=== PATIENT | female | born 1980 | race Caucasian/White ===

== ENCOUNTER 2016-06-22 17:27 | Emergency (ER) | payer MEDICAID ==
[~2016-06-22] VITALS: Ht 177.8 cm; Wt 88.5 kg
[~2016-06-22 17:27] MED LIST: AMPH30TA3 PO
[2016-06-22] MEDS ORDERED: DEXT5SYR PO (17:43)
[2016-06-22] MEDS ORDERED: [UNRECOGNIZED DRUG - REMARK] PO (17:43)
== END 2016-06-22 17:54 | disposition home or self-care (01) ==
LOC: ER 17:31
DX: J32.9 Chronic sinusitis, unspecified (principal); Z88.0 Allergy status to penicillin
CPT/HCPCS: 99283; A4663

== ENCOUNTER 2016-07-10 21:10 | Emergency (ER) | payer MEDICAID ==
[~2016-07-10] VITALS: Ht 177.8 cm; Wt 88.5 kg
[~2016-07-10 21:10] MED LIST changes: -AMPH30TA3 PO; +DEXT5SYR PO; +[UNRECOGNIZED DRUG - REMARK] PO
--- NOTE | 2016-07-10 23:01 | NUR ---
Patient discharged to home in stable conditon. Written and verbal after care instructions given. Patient verbalizes understanding of instructions.
== END 2016-07-10 23:02 | disposition home or self-care (01) ==
LOC: ER 21:14
DX: J06.9 Acute upper respiratory infection, unspecified (principal); F17.200 Nicotine dependence, unspecified, uncomplicated; Z88.0 Allergy status to penicillin
CPT/HCPCS: 71020; 99284; A4663

== ENCOUNTER → 2016-09-03 | Emergency (ER) | payer MEDICAID ==
--- NOTE | 2016-09-03 23:02 | NUR ---
PATIENT WAS CALLED SEVERAL TIMES. PATIENT WAS NOT PRESENT. PATIENT WAS NOT TRAIGE OR SEEN BY ERMD
== END | disposition left against medical advice (07) ==
LOC: ER 22:38
DX: Z53.21 Procedure and treatment not carried out due to patient leaving prior to being seen by health care provider (principal)

== ENCOUNTER 2016-09-04 07:30 | Emergency (ER) | payer MEDICAID ==
[~2016-09-04] VITALS: Ht 172.7 cm; Wt 77.1 kg
--- NOTE | 2016-09-04 07:48 | NUR ---
DR MERCADO AT THE BEDSIDE FOR EVAL AND EXAM.
--- NOTE | 2016-09-04 08:05 | NUR ---
Patient discharged to home in stable conditon. Written and verbal after care instructions given. Patient verbalizes understanding of instructions.
[2016-09-04 08:06] VITALS: BP 114/64
== END 2016-09-04 08:07 | disposition home or self-care (01) ==
LOC: ER 07:30
DX: K04.7 Periapical abscess without sinus (principal); F17.200 Nicotine dependence, unspecified, uncomplicated; Z88.0 Allergy status to penicillin
CPT/HCPCS: A4663

== ENCOUNTER 2016-09-27 18:18 | Emergency (ER) | payer MEDICAID ==
[~2016-09-27] VITALS: Ht 172.7 cm; Wt 77.1 kg
--- NOTE | 2016-09-27 19:15 | NUR ---
Assumed care of pt at this time. Pt resting in position of comfort for self. Pt c/o heavy vaginal bleeding that started today, sts passing large clots. Also c/o lower abd pain. Pt resting in position of comfort for self. Awaiting further eval. Family at bedside.
[2016-09-27 20:06] LABS: *BILIRUBIN,URIN NEGATIVE (NEGATIVE); *BLOOD, URINE 3+ (NEGATIVE); *CLARITY,URINE CLOUDY (CLEAR); *KETONES,URINE NEGATIVE (NEGATIVE); *PROTEIN,URINE 1+ (NEGATIVE); *UROBILINOGEN,URINE 0.2 E.U./dl (NORMAL); LEUKOCYTE ESTERASE ,URINE NEGATIVE (NEGATIVE); NITRITE, URINE NEGATIVE (NEGATIVE); PH,URINE 6.5 (5.0-8.0); UGLUCOSE NEGATIVE (NEGATIVE)
[2016-09-27 20:09] LABS: *URINE HCG, QUAL NEGATIVE (NEGATIVE)
[2016-09-27 20:15] LABS: *COLOR,URINE Brown (YELLOW)
[2016-09-27 20:16] LABS: BACTERIA,URINE MODERATE /HPF (NONE SEEN); MUCUS,URINE MANY /LPF (0-FEW); RBC,URINE TNTC /HPF (0-3); SQUAMOUS EPITHELIAL CELL,UR MODERATE /HPF (NONE SEEN)
[2016-09-27 20:54] LABS: BASOPHILS # (AUTO) 0.1 K/uL (0.0-8.0); BASOPHILS % (AUTO) 0.7 % (0.0-2.0); EOSINOPHILS # (AUTO) 0.3 K/uL (0.0-0.7); EOSINOPHILS % (AUTO) 3.6 % (0.0-7.0); HEMATOCRIT 37.6 % (37-47); HEMOGLOBIN 12.9 G/DL (12.0-16.0); LYMPHOCYTES # (AUTO) 2.5 K/UL (0.8-4.8); LYMPHOCYTES % (AUTO) 34.9 % (20.5-51.5); MEAN CORPUSCULAR HEMOGLOBIN 30.7 UUG (27.0-31.0); MEAN CORPUSCULAR HGB CONC 34 g/dL (32.0-37.0); MEAN CORPUSCULAR VOLUME 89.8 FL (81.0-99.0); MONOCYTES # (AUTO) 0.8 K/UL (0.1-1.30); MONOCYTES % (AUTO) 10.7 % (0.0-11.0); NEUTROPHILS # (AUTO) 3.5 K/UL (1.8-8.9); NEUTROPHILS % (AUTO) 50.1 % (38.5-71.5); PLATELET COUNT (AUTO) 233 K/UL (150-450); RED BLOOD CELL COUNT(AUTO) 4.19 MIL/UL (4.2-5.4); WHITE BLOOD COUNT (AUTO) 7.2 K/UL (4.0-11.2)
[2016-09-27 21:00] LABS: CREATININE 0.9 mg/dL (0.6-1.3); POTASSIUM 3.8 mmol/L (3.5-5.1)
[2016-09-27 21:06] LABS: BILIRUBIN,TOTAL 0.2 mg/dL (0.2-1.0); TOTAL PROTEIN, SERUM 6.8 g/dL (6.4-8.2)
[2016-09-27] MEDS: IBUPROFEN 600 MG TABLET PO ONE (21:38)
--- NOTE | 2016-09-27 21:39 | NUR ---
Pt medicated for discomfort, will monitor for effects of medication. Pt resting in position of comfort for self.
[2016-09-27] MEDS ORDERED: IBUPROFEN 600 MG TABLET ONE (21:42)
--- NOTE | 2016-09-27 22:12 | NUR ---
Pt resting in position of comfort for self. Resp even and unlabored. No obvious signs of distress at this time.
[2016-09-27 23:25] LABS: HEMATOCRIT 39.6 % (37-47); HEMOGLOBIN 13.2 G/DL (12.0-16.0)
--- NOTE | 2016-09-27 23:27 | NUR ---
Repeat labs drawn and sent. Awaiting results. Pt resting in position of comfort for self. Resp even and unlabored.
--- NOTE | 2016-09-27 23:40 | NUR ---
Pt stable for discharge per MD. Pt given [facility], but refused to take the paperwork. Pt verbalized understanding of dc instructions. Pt ambulated out of er with steady gait and ride home.
[2016-09-28 00:19] VITALS: BP 150/74
== END 2016-09-27 23:40 | disposition home or self-care (01) ==
LOC: ER 18:22
DX: N93.8 Other specified abnormal uterine and vaginal bleeding (principal); F17.210 Nicotine dependence, cigarettes, uncomplicated; Z88.0 Allergy status to penicillin
CPT/HCPCS: 36415; 84703; 85018; 85025; 85610; A4663

== ENCOUNTER 2017-01-15 20:34 | Emergency (ER) | payer MEDICAID ==
[~2017-01-15] VITALS: Ht 177.8 cm; Wt 95.3 kg
--- NOTE | 2017-01-15 20:50 | NUR ---
Dr philip into eval patient
[2017-01-15] MEDS ORDERED: HYDROCODONE/APAP 10-325 MG TABLET PO ONE (21:00)
[2017-01-15] MEDS ORDERED: AZITHROMYCIN 250 MG TABLET PO ONE (21:00)
[2017-01-15] MEDS ORDERED: ONDANSETRON ODT 4 MG TAB.RAPDIS SL ONE (21:00)
--- NOTE | 2017-01-15 21:08 | NUR ---
Patient discharged to home in stable conditon with family taking patient home. Written and verbal after care instructions given. Patient verbalizes understanding of instructions. Walked out of ER with no distress noted
[2017-01-15 21:09] VITALS: BP 158/92
[2017-01-15] MEDS ORDERED: AZITHROMYCIN 250 MG TABLET ONE (21:12)
[2017-01-15] MEDS ORDERED: ONDANSETRON ODT 4 MG TAB.RAPDIS ONE (21:13)
[2017-01-15] MEDS ORDERED: HYDROCODONE/APAP 10-325 MG TABLET ONE (21:13)
== END 2017-01-15 21:09 | disposition home or self-care (01) ==
LOC: ER 20:36
DX: K08.89 Other specified disorders of teeth and supporting structures (principal); F17.200 Nicotine dependence, unspecified, uncomplicated; F90.9 Attention-deficit hyperactivity disorder, unspecified type; Z88.0 Allergy status to penicillin
CPT/HCPCS: A4663; Q0144; Q0162

== ENCOUNTER 2017-01-22 05:03 | Emergency (ER) | payer MEDICAID ==
[~2017-01-22] VITALS: Ht 177.8 cm; Wt 95.3 kg
--- NOTE | 2017-01-22 05:47 | NUR ---
Patient discharged to home in stable conditon. Written and verbal after care instructions given. Patient verbalizes understanding of instructions.
== END 2017-01-22 05:48 | disposition home or self-care (01) ==
LOC: ER 05:08
DX: K08.89 Other specified disorders of teeth and supporting structures (principal); F90.9 Attention-deficit hyperactivity disorder, unspecified type; F17.200 Nicotine dependence, unspecified, uncomplicated; Z88.0 Allergy status to penicillin
CPT/HCPCS: 99283; A4663

== ENCOUNTER 2017-03-07 01:32 | Emergency (ER) | payer MEDICAID ==
[~2017-03-07] VITALS: Ht 175.3 cm; Wt 95.3 kg
[2017-03-07] MEDS: CLINDAMYCIN HCL 150 MG CAPSULE PO ONE (02:21)
[2017-03-07] MEDS: HYDROCODONE/APAP 10-325 MG TABLET PO ONE (02:21)
--- NOTE | 2017-03-07 02:24 | NUR ---
Patient discharged to home in stable conditon. Written and verbal after care instructions given. Patient verbalizes understanding of instructions.
[2017-03-07] MEDS ORDERED: CLINDAMYCIN HCL 300 MG CAPSULE ONE (02:36)
[2017-03-07] MEDS ORDERED: HYDROCODONE/APAP 10-325 MG TABLET ONE (02:37)
== END 2017-03-07 02:25 | disposition home or self-care (01) ==
LOC: ER 01:34
DX: K04.7 Periapical abscess without sinus (principal); F90.9 Attention-deficit hyperactivity disorder, unspecified type; Z88.0 Allergy status to penicillin; F17.200 Nicotine dependence, unspecified, uncomplicated
CPT/HCPCS: 99283; A4663

== ENCOUNTER 2017-05-09 14:41 | Emergency (ER) | payer MEDICAID ==
[~2017-05-09] VITALS: Ht 175.3 cm; Wt 95.3 kg
--- NOTE | 2017-05-09 14:55 | NUR ---
Pt triaged and placed in ER lobby, there are no ER beds available at this time.
--- NOTE | 2017-05-09 15:45 | NUR ---
Pt ambulatory to room 4a.
[2017-05-09] MEDS ORDERED: ONDANSETRON 4 MG/2 ML VIAL IV ONE (16:45)
[2017-05-09] MEDS ORDERED: IV NS 1000 ML 1,000 ML IV ONE ×2 (16:45→18:30)
[2017-05-09] MEDS ORDERED: ONDANSETRON 4 MG/2 ML VIAL ONE ×2 (16:52→18:30)
[2017-05-09 17:06] LABS: BASOPHILS % (AUTO) 0.6 % (0.0-2.0); EOSINOPHILS # (AUTO) 0.1 K/uL (0.0-0.7); EOSINOPHILS % (AUTO) 1.7 % (0.0-7.0); HEMOGLOBIN 15.9 g/dL (10.9-14.3); LYMPHOCYTES # (AUTO) 2.1 K/uL (20.0-40.0); LYMPHOCYTES % (AUTO) 31.3 % (20.5-51.5); MEAN CORPUSCULAR HEMOGLOBIN 29.1 uug (24.7-32.8); MEAN CORPUSCULAR HGB CONC 34 g/dL (32.3-35.6); MEAN CORPUSCULAR VOLUME 86.2 fL (75.5-95.3); MONOCYTES # (AUTO) 0.5 K/uL (2.0-10.0); MONOCYTES % (AUTO) 7.7 % (0.0-11.0); NEUTROPHILS # (AUTO) 3.9 K/uL (1.8-8.9); NEUTROPHILS % (AUTO) 58.7 % (38.5-71.5); PLATELET COUNT (AUTO) 226 K/uL (179-408); RED BLOOD CELL COUNT(AUTO) 5.45 MIL/uL (3.63-4.92); WHITE BLOOD COUNT (AUTO) 6.6 K/uL (3.8-11.8)
[2017-05-09 17:14] LABS: CREATININE 0.8 mg/dL (0.6-1.3); POTASSIUM 4.1 mmol/L (3.5-5.1)
[2017-05-09 17:21] LABS: BILIRUBIN,TOTAL 0.3 mg/dL (0.2-1.0); TOTAL PROTEIN, SERUM 8.2 g/dL (6.4-8.2)
[2017-05-09] MEDS ORDERED: ONDANSETRON IV *ER 4 MG/2 ML VIAL IV ONE (18:30)
--- NOTE | 2017-05-09 18:46 | NUR ---
PT POSITIONED FOR COMFORT, PT REC'D ZOFRAN
--- NOTE | 2017-05-09 19:19 | NUR ---
BEDSIDE SBAR REPORT TO VANIA BLANCO.
[2017-05-09] MEDS ORDERED: diphenhydrAMINE 50 MG/1 ML VIAL IV ONE (20:00)
[2017-05-09] MEDS ORDERED: METOCLOPRAMIDE HCL 10 MG/2 ML VIAL IV ONE (20:00)
[2017-05-09] MEDS ORDERED: KETOROLAC TROMETHAMINE 30 MG INJ IVP ONE (20:00)
[2017-05-09] MEDS ORDERED: METOCLOPRAMIDE HCL 10 MG/2 ML VIAL ONE (20:29)
[2017-05-09] MEDS ORDERED: diphenhydrAMINE 50 MG/1 ML VIAL ONE (20:30)
[2017-05-09] MEDS ORDERED: KETOROLAC TROMETHAMINE 30 MG INJ ONE (20:30)
[2017-05-09] MEDS ORDERED: IV NORMAL SALINE 1000 ML BAG IV ONE (21:15)
[2017-05-09] MEDS ORDERED: MORPHINE SULFATE 4 MG/1 ML DISP.SYRIN IV ONE (21:15)
[2017-05-09] MEDS ORDERED: MORPHINE SULFATE 4 MG/1 ML DISP.SYRIN ONE (21:19)
--- NOTE | 2017-05-09 21:58 | NUR ---
Patient discharged to home in stable conditon. Written and verbal after care instructions given. Patient verbalizes understanding of instructions. Patient ambulated out of ER with steady gait, all belongings taken, VSS, no acute signs of distress.
[2017-05-09 22:00] VITALS: BP 131/77
== END 2017-05-09 22:00 | disposition home or self-care (01) ==
LOC: ER 14:41
DX: R11.2 Nausea with vomiting, unspecified (principal); E86.9 Volume depletion, unspecified; F17.210 Nicotine dependence, cigarettes, uncomplicated; Z88.0 Allergy status to penicillin
CPT/HCPCS: 36415; 84703; 85025; 87400; A4663; J2270; J2405; J2765; J7030

== ENCOUNTER 2017-09-08 22:37 | Emergency (ER) | payer MEDICAID ==
--- NOTE | 2017-09-08 23:05 | NUR ---
CALLED FOR PT NO ANSWER LWBT
== END 2017-09-08 23:05 | disposition left against medical advice (07) ==
LOC: ER 22:39
DX: Z53.21 Procedure and treatment not carried out due to patient leaving prior to being seen by health care provider (principal)

== ENCOUNTER 2017-09-28 01:58 | Emergency (ER) | payer MEDICAID ==
[~2017-09-28] VITALS: Ht 180.3 cm; Wt 97.5 kg
[2017-09-28] MEDS ORDERED: HYDROMORPHONE 1 MG/1 ML DISP.SYRIN IM ONE (02:30)
[2017-09-28] MEDS ORDERED: ONDANSETRON 4 MG/2 ML VIAL IM ONE (02:30)
[2017-09-28] MEDS ORDERED: HYDROMORPHONE 2 MG/1 ML DISP.SYRIN ONE (02:36)
[2017-09-28] MEDS ORDERED: ONDANSETRON 4 MG/2 ML VIAL ONE (02:36)
[2017-09-28 02:40] VITALS: BP 155/90
--- NOTE | 2017-09-28 02:40 | NUR ---
Patient discharged to home in stable conditon WITH TAKING PATIENT HOME. Written and verbal after care instructions given. Patient verbalizes understanding of instructions. WALKED OUT OF ER WITH NO DISTRESS NOTED
== END 2017-09-28 02:41 | disposition home or self-care (01) ==
LOC: ER 02:01
DX: S16.1XXA Strain of muscle, fascia and tendon at neck level, initial encounter (principal); F17.210 Nicotine dependence, cigarettes, uncomplicated; Z88.0 Allergy status to penicillin; X58.XXXA Exposure to other specified factors, initial encounter; Y93.89 Activity, other specified; Y92.89 Other specified places as the place of occurrence of the external cause; Y99.8 Other external cause status
CPT/HCPCS: A4663; J1170; J2405

== ENCOUNTER 2017-12-19 10:21 | Emergency (ER) | payer MEDICAID ==
[~2017-12-19] VITALS: Ht 180.3 cm; Wt 95.3 kg
--- NOTE | 2017-12-19 10:44 | NUR ---
Per ER admitting pt stated she changed her mind and does not want to bee seen anymore.
== END 2017-12-19 10:46 | disposition left against medical advice (07) ==
LOC: ER 10:21
DX: Z53.21 Procedure and treatment not carried out due to patient leaving prior to being seen by health care provider (principal)
CPT/HCPCS: A4663

== ENCOUNTER 2018-02-17 19:58 | Emergency (ER) | payer MEDICAID ==
[~2018-02-17] VITALS: Ht 177.8 cm; Wt 93.9 kg
[2018-02-17] MEDS ORDERED: CLINDAMYCIN HCL 150 MG CAPSULE ONE (20:25)
[2018-02-17] MEDS ORDERED: KETOROLAC TROMETHAMINE 30 MG INJ ONE (20:26)
[2018-02-17] MEDS ORDERED: KETOROLAC TROMETHAMINE 30 MG INJ IM ONE (20:30)
[2018-02-17] MEDS ORDERED: CLINDAMYCIN HCL 150 MG CAPSULE PO ONE (20:30)
[2018-02-17 20:31] VITALS: BP 138/92
--- NOTE | 2018-02-17 20:31 | NUR ---
Patient discharged to home in stable conditon. Written and verbal after care instructions given. Patient verbalizes understanding of instructions.
== END 2018-02-17 20:32 | disposition home or self-care (01) ==
LOC: ER 20:00
DX: K08.89 Other specified disorders of teeth and supporting structures (principal); F17.200 Nicotine dependence, unspecified, uncomplicated; Z88.0 Allergy status to penicillin
CPT/HCPCS: 96372; 99283; J1885; A4663

== ENCOUNTER 2018-12-21 21:12 | Emergency (ER) | payer MEDICAID ==
--- NOTE | 2018-12-21 22:02 | NUR ---
Patient was not triaged or seen by ERMD.
== END 2018-12-21 22:04 | disposition left against medical advice (07) ==
LOC: ER 21:12
DX: Z53.21 Procedure and treatment not carried out due to patient leaving prior to being seen by health care provider (principal)